=== PATIENT | male | born 1990 | race Caucasian/White ===

== ENCOUNTER 2024-11-28 18:01 | Outpatient (CLI) | payer BC, SELFPAY | END 2024-11-28 18:02 | disposition home or self-care (01) | LOC: LKVREF 18:02 | PROVIDERS: Visit Provider Family Medicine | DX: E66.9 Obesity, unspecified (principal); R03.0 Elevated blood-pressure reading, without diagnosis of hypertension; Z13.0 Encounter for screening for diseases of the blood and blood-forming organs and certain disorders involving the immune mechanism; Z13.6 Encounter for screening for cardiovascular disorders | CPT/HCPCS: 80053; 80061 ==